=== PATIENT | male | born 1985 | race Caucasian/White ===

== ENCOUNTER 2023-04-10 12:14 | Emergency (ER) | payer SELFPAY ==
[2023-04-10] MEDS ORDERED: Ondansetron PF 4 MG/2 ML Vial ONE (13:02)
[2023-04-10] MEDS ORDERED: Ibuprofen 600 MG TAB PO SCH (13:15)
[2023-04-10 14:19] LABS: SARS-CoV-2 NAA Rapid Test Not Detected (NotDetected)
== END 2023-04-10 14:25 | disposition home or self-care (01) ==
LOC: CSHERS 12:14
DX: J10.1 Influenza due to other identified influenza virus with other respiratory manifestations (principal); F17.210 Nicotine dependence, cigarettes, uncomplicated
CPT/HCPCS: 96361; 96374; J2405